=== PATIENT | female | born 1955 | race Caucasian/White ===

== ENCOUNTER 2018-11-13 13:39 | Emergency (ER) | payer MEDICARE, MEDICAID, SELFPAY ==
[2018-11-13 13:40] VITALS: BP 131/82; PULSE 94; RESP 15; TEMP 36.1; O2SAT 97; BMI 26.5
--- NOTE | 2018-11-13 17:30 | PC.NURSE ---
pt c/o right armpit abscess. states seen at [facility], they did a culture, pt recieved a phone call from them telling her the infection is MRSA, pt states they sent antibiotic to [facility], and did not pick them up prior to traveling. pt states her primary md told her to come to ED for possible lancing.
[2018-11-13 18:05] VITALS: BP 125/66; PULSE 90; RESP 18; O2SAT 95
--- NOTE | 2018-11-13 20:09 | ED_ITS ---
HPI - Skin/Abscess/Foreign Bdy <Anya Mcnulty PA-C - Last Filed: 11/13/18 22:21> General Chief complaint: Skin/Abscess/Foreign Body Stated complaint: MRSA Time Seen by Provider: 11/13/18 19:49 Source: patient Mode of arrival: ambulatory Limitations: no limitations History of Present Illness HPI narrative: This 63-year-old female comes to ED due to axillary abscess. She states that she has had this for a couple of weeks, started out as a small bump which she thought was an ingrown hair. She saw her PCP on Saturday who measured this and states it had grown to 9 cm. A surgical consult was requested however patient was not able to get back for that. This was draining a little bit and patient states culture was done. She states her primary care office called her and told her culture showed MRSA and that she might need I&D. She states that she was not put on antibiotic and has been out of town for a few days here. She sought this had grown in the interim, however states that she has been using a hot pack on this and actually has expressed quite a bit of whitish drainage, however she is concerned now as there are little small red bumps with pustules around this site. She denies any spreading redness, fever, or other new symptoms today. Related Data Previous Rx's Medication Instructions Recorded doxycycline monohydrate 100 mg PO BID 7 Days #14 cap 11/13/18 Allergies Allergy/AdvReac Type Severity Reaction Status Date / Time codeine Allergy Verified 11/13/18 13:48 Penicillins Allergy Verified 11/13/18 13:48 Sulfa (Sulfonamide Allergy Verified 11/13/18 13:48 Antibiotics) Review of Systems <Anya Mcnulty PA-C - Last Filed: 11/13/18 22:21> Review of Systems ROS Unobtainable: All systems reviewed & are unremarkable except as noted in HPI and below PFSH <Anya Mcnulty PA-C - Last Filed: 11/13/18 22:21> Medical History History of anxiety disorder (Chronic) History of melanoma (Chronic) History of solitary pulmonary nodule (Chronic) Surgical History Status post rotator cuff repair (Resolved) Family History Other No pertinent family history Social History Smoking Status: Current every day smoker Family History Other No pertinent family history Social History Smoking Status: Current every day smoker Exam <Anya Mcnulty PA-C - Last Filed: 11/13/18 22:21> Narrative Exam Narrative: GENERAL APPEARANCE: Patient sitting comfortably, in no distress. LUNGS: Clear to auscultation bilaterally. HEART: Rate and rhythm regular without murmur, normal S1 and S2, no S3 or S4. DERMATOLOGIC: Right axilla there is a tender, indurated 3-4 cm nodule with a 3 mm open pore and a drop of white material at the opening. I am not able to express any drainage and this is not fluctuant on palpation. Minimal localized erythema at the borders, not warm to touch. There are several other small erythematous papules and pustules in the axillary hair follicles, none elsewhere Initial Vital Signs Initial Vital Signs: Vital Signs Temperature 97 F L 11/13/18 13:40 Pulse Rate 94 H 11/13/18 13:40 Respiratory Rate 15 11/13/18 13:40 Blood Pressure 131/82 11/13/18 13:40 Pulse Oximetry 97 11/13/18 13:40 <Amirah Hollis DO - Last Filed: 11/14/18 02:48> Initial Vital Signs Initial Vital Signs: Vital Signs Temperature 97 F L 11/13/18 13:40 Pulse Rate 94 H 11/13/18 13:40 Respiratory Rate 15 11/13/18 13:40 Blood Pressure 131/82 11/13/18 13:40 Pulse Oximetry 97 11/13/18 13:40 Course <Anya Mcnulty PA-C - Last Filed: 11/13/18 22:21> Additional Information: Advised patient the larger lesion appears more indurated and fluctuant and does not appear to need incision and drainage night. She has other small pustules in the axilla as well. She describes hot packing this and getting significant drainage from the wound. It is significantly smaller now than she describes on exam a few days ago. She will start antibiotic and follow up with her PCP in a few days. She agreed to return here if any acutely worsening symptoms while in town. She was given a note for [facility] that this should not affect her ability to stay there. Orders Ordered: Discontinued Medications Doxycycline Hyclate (Vibramycin) 100 mg PO NOW ONE Stop: 11/13/18 20:11 Last Admin: 11/13/18 20:58 Dose: 100 mg Vital Signs - 8 hr 11/13/18 21:09 Temperature 97.2 F L Pulse Rate 78 Respiratory Rate 17 Blood Pressure 134/76 Pulse Oximetry 99 <Amirah Hollis DO - Last Filed: 11/14/18 02:48> Orders Ordered: Discontinued Medications Doxycycline Hyclate (Vibramycin) 100 mg PO NOW ONE Stop: 11/13/18 20:11 Last Admin: 11/13/18 20:58 Dose: 100 mg Vital Signs - 8 hr 11/13/18 21:09 Temperature 97.2 F L Pulse Rate 78 Respiratory Rate 17 Blood Pressure 134/76 Pulse Oximetry 99 Discharge Plan Departure Patient Disposition: Home Clinical Impression: Abscess of skin or subcutaneous tissue Qualifiers: Site of cutaneous abscess: extremity Site of cutaneous abscess of extremity: axilla Laterality: right Qualified Code(s): L02.411 - Cutaneous abscess of right axilla Cellulitis Qualifiers: Site of cellulitis: extremity Site of cellulitis of extremity: axilla Laterality: right Qualified Code(s): L03.111 - Cellulitis of right axilla Discharge Date/Time: 11/13/18 21:18 Interventions: ED Discharge Assessment Last Done: 11/13/18 21:09 Instructions: DI for Skin Abscess Activity Restrictions/Additional Instructions: You should return as we talked about if you have acutely worsening symptoms, i.e. high fever, spreading redness into your arm, increased swelling or pain. Otherwise, please start the antibiotic. It is likely to take few days to start working and you should see your PCP 1st of the week for follow-up. Please continue your hot packs to the area as you have been as this is likely to help it drain. It does not appear to need surgical drainage this evening, as it seems like you have been able to drain quite a bit of pus from it since you were last seen. We have given you the 1st dose of antibiotic tonight, and I have sent in a prescription to [facility] for you which you should filler picker 1st thing in the morning when they open and continue every 12 hr. Prescriptions: New doxycycline monohydrate 100 mg capsule 100 mg PO BID 7 Days Qty: 14 RF: 0 Referrals: Digna Younger [Other] Stand Alone Forms: Work Release Note <Amirah Hollis, - Last Filed: 11/14/18 02:48> Cosign ED Attending Cosignature Attestation: I was immediately available in the de partment for consultation. Documentation has been reviewed. I agree with assessment and plan.
[2018-11-13] MEDS: DOXYCYCLINE HYCLATE 100 MG TABLET PO (20:58)
[2018-11-13 21:09] VITALS: BP 134/76; PULSE 78; RESP 17; TEMP 36.2; O2SAT 99
== END 2018-11-13 21:18 | disposition home or self-care (01) ==
PROVIDERS: Emergency Provider Internal Medicine
DX: L02.411 Cutaneous abscess of right axilla (principal); L03.111 Cellulitis of right axilla
CPT/HCPCS: 99282; 99283

== ENCOUNTER 2021-06-10 14:20 | Emergency (ER) | payer MEDICARE, MEDICAID, SELFPAY ==
[2021-06-10] VITALS (7 sets, daily range): BP systolic 146–154; BP diastolic 75–86; PULSE 65–83; RESP 15–26; TEMP 36.7; O2SAT 94–97; BMI 26.9
--- NOTE | 2021-06-10 15:07 | DI.CT.S_ITS ---
PROCEDURE: CT ABDOMEN W CON INDICATIONS: RUQ pain c/w hx pancreatitis TECHNIQUE: After the administration of intravenous contrast, axial sections acquired from the diaphragm to the iliac crests. Coronal and sagittal reformats were performed. For radiation dose reduction, the following was used: automated exposure control, adjustment of mA and/or kV according to patient size. COMPARISON: None. FINDINGS: Image quality: Excellent. Lung bases: Unremarkable. Heart: No significant findings. Liver: Enhancing foci at the inferior right lobe of the liver, (2/22, 32). There are several well-circumscribed hypodense foci in the liver which have the appearance of benign cysts. Gallbladder: Surgically absent. Biliary ducts: Unremarkable. Pancreas: Scattered calcifications in the head of the pancreas. This is typical of chronic calcific pancreatitis. 1 of the calcifications at the head of the pancreas may be intraductal measuring 0.7 cm, (2/26). No upstream pancreatic ductal dilatation is seen. No loculated fluid collection. Spleen: Unremarkable. Adrenal Glands: Small left density nodule in the left adrenal gland measuring 0.9 cm, (2/16). Kidneys and Ureters: No hydronephrosis. Small cysts in the left kidney. Stomach and Bowel: Stomach is not distended. Hypodense region within the wall or submucosa of the proximal duodenum measuring 1.6 cm, (4/20). Peritoneum: No abnormal intraperitoneal fluid. No free air. Ventral Wall: Tiny umbilical hernia. Right upper abdominal wall fat containing hernia, (2/27). Abdominal Nodes: No retroperitoneal or mesenteric adenopathy by size criteria. Vessels: Aorta and inferior vena cava are normal in size. Moderate calcified atherosclerotic plaque. Bones: Unremarkable. IMPRESSION: 1. Findings of chronic calcific pancreatitis. No peripancreatic fluid collection. 2. Small hypodense region in the proximal duodenum may represent a submucosal fluid collection, ulcer, or mass. -Recommend comparison with more remote CTs if available. Consider further evaluation with endoscopy. 3. Small enhancing foci in the liver. These are indeterminate but could represent a benign finding such as hemangioma. These could be further characterized with multiphase liver CT or MRI with IV contrast. 4. Left adrenal gland low-density subcentimeter nodule. -Recommend adrenal protocol MRI or washout CT for further characterization. 5. Post cholecystectomy. Dictated by: Eusebio Adler M.D. on 06/10/2021 at 14:49 Approved by: Eusebio Adler M.D. on 06/10/2021 at 15:01
[2021-06-10 15:09] LABS: Add Manual Diff / Slide Review NO; Basophils Absolute Auto 100 /uL (0-100); Basophils Percent Auto 0.9 % (0-2); Eosinophils Absolute Auto 200 /uL (0-450); Hemoglobin 13.6 g/dL (12.0-16.0); Lymphocytes Absolute Auto 2000 /uL (1100-4500); Lymphocytes Percent Auto 18.1 % (25-40); Mean Corpuscular HGB Conc 32.5 % (30-36); Mean Corpuscular Hemoglobin 29.6 PG (26-34); Mean Corpuscular Volume 91.2 fL (80-100); Monocytes Absolute Auto 700 /uL (0-900); Monocytes Percent Auto 5.9 % (3-14); Neutrophils Absolute Auto 8200 /uL (1500-7000); Neutrophils Percent Auto 73.1 % (50-75); Platelet Count 190 X10^3/uL (150-400); Red Cell Distribution Width 13.8 % (11.6-14.8); White Blood Cell Count 11.2 X10^3/uL (4.5-11.0)
[2021-06-10 15:10] LABS: Alanine Aminotransferase 16 IU/L (<35); Albumin 4.3 g/dL (3.5-5.0); Albumin Globulin Ratio 1.4 (1.0-2.8); Alkaline Phosphatase 101 U/L (38-126); Aspartate Aminotransferase 24 IU/L (14-36); BUN Creatinine Ratio 29.8 (6-22); Bilirubin Total 0.4 mg/dL (0.2-1.3); Blood Urea Nitrogen 17 mg/dL (7-17); Calcium 9.2 mg/dL (8.4-10.2); Carbon Dioxide 26 mmol/L (22-32); Chloride 106 mmol/L (98-107); Estimated Glomerular Filt Rate > 60.0 mL/min (>60); Globulin 3.1 g/dL (1.7-4.1); Glucose 103 mg/dL (80-110); HEMOLYSIS < 15 (0-50); Lipase 67 U/L (23-300); Potassium 4.4 mmol/L (3.4-5.1); Sodium 137 mmol/L (137-145); Total Protein 7.4 g/dL (6.3-8.2)
[2021-06-10 15:11] LABS: INR 0.9 (0.9-1.3); Prothrombin Time 10.2 SECONDS (10.1-12.7)
--- NOTE | 2021-06-10 15:11 | ED_ITS ---
HPI - Abdominal Pain <IRENE Venegas - Last Filed: 06/10/21 17:39> General Chief Complaint: Abdominal Pain Stated Complaint: Sharp pains in stomach Time Seen by Provider: 06/10/21 14:56 History of Present Illness HPI narrative: 65-year-old female presents to the ED for 1 day with upper quadrant abdominal pain that comes and goes. She reports that she had pancreatitis last year when she was drinking hard liquor every day, she reports that she has been drinking last and typically only has 1 tall can of beer a day, and she reports she does not drink every day. She denies having a fever, no vomiting, and she had a normal bowel movement this morning, she does endorse nausea, denies any changes to her urination or dysuria. She reports that the pain woke her up at 2:00 a.m. when she was staying in [place] last night. She reports that she had dinner with 1 beer prior to bed. She denies any melena, chest pain, shortness of breath, or changes to her routine. Related Data Previous Rx's Medication Instructions Recorded oxycodone 5 mg tablet 5 mg PO BID PRN #10 tab 06/10/21 Allergies Allergy/AdvReac Type Severity Reaction Status Date / Time codeine Allergy Verified 11/13/18 13:48 Penicillins Allergy Verified 11/13/18 13:48 Sulfa (Sulfonamide Allergy Verified 11/13/18 13:48 Antibiotics) Review of Systems <IRENE Venegas - Last Filed: 06/10/21 17:39> Review of Systems Narrative: General: denies fever, chills Head/Neck: denies headache, neck pain Eyes: denies visual changes, eye pain Cardio: denies chest pain, palpitations Respiratory: denies shortness of breath, cough GI: Intermittent Upper abdominal pain, denies vomiting, or diarrhea : denies dysuria, hematuria MSK: denies joint pain, muscle weakness Skin: denies rash, itching Neuro: denies numbness, tingling Patient History <IRENE Venegas - Last Filed: 06/10/21 17:39> Medical History History of anxiety disorder History of melanoma History of solitary pulmonary nodule Surgical History Status post rotator cuff repair Family History Other No pertinent family history Social History Smoking Status: Current every day smoker Smoking Status: Current every day smoker alcohol intake frequency: holidays/special occasions only Substance Use Type: does not use Exam <IRENE Venegas - Last Filed: 06/10/21 17:39> Narrative Exam Narrative: Independently reviewed vitals signs and nursing notes. General: Awake, alert, nontoxic, no cardiorespiratory distress Head/Neck: Atraumatic, neck full range of motion Eyes: EOMI, conjunctiva normal Nose: nares patent, no rhinorrhea Mouth/Throat: moist mucus membranes, posterior pharynx normal, no oral lesions Cardio: Regular rate and rhythm, no peripheral edema Respiratory: respirations unlabored without wheezing, stridor, or rales. No retractions. GI: Abdomen soft, no masses, no rigidity, nontender to palpation, complains of jayashree umbilical pain when spasms, none right now. MSK: Moves all extremities, neurovascularly intact Skin: Normal capillary refill, no rash, well-perfused Neuro: Normal speech and cognition, normal gait Initial Vital Signs Initial Vital Signs: Vital Signs Pulse Rate 79 06/10/21 14:31 Pulse Oximetry 97 06/10/21 14:31 <Dominick Stinson DO - Last Filed: 06/10/21 17:45> Initial Vital Signs Initial Vital Signs: Vital Signs Pulse Rate 79 06/10/21 14:31 Pulse Oximetry 97 06/10/21 14:31 Course <IRENE Venegas - Last Filed: 06/10/21 17:39> Orders Ordered: ED Orders 06/10/21 14:37 EKG-12 Lead Stat 06/10/21 14:40 Complete Blood Count AUTO DIFF Stat Comprehensive Metabolic Panel Stat Lipase Stat Partial Thromboplastin Time Stat Prothrombin Time INR Stat Urine Microscopic Stat 06/10/21 15:07 CT abdomen w con Stat Discontinued Medications Ketorolac Tromethamine (Ketorolac 30 Mg/Ml Vial) 30 mg IV NOW ONE Stop: 06/10/21 15:08 Last Admin: 06/10/21 15:21 Dose: 30 mg Documented by: REBECCA Ondansetron HCl (Ondansetron 4 Mg/2 Ml Inj) 4 mg IV NOW ONE Stop: 06/10/21 14:37 Last Admin: 06/10/21 15:21 Dose: Not Given Documented by: REBECCA Oxycodone/Acetaminophen (Oxycodone/Acetaminophen 5/325 Tablet) 1 tab PO NOW ONE Stop: 06/10/21 16:36 Last Admin: 06/10/21 16:50 Dose: 1 tab Documented by: REBECCA Vital Signs Vital signs: Vital Signs - 8 hr 06/10/21 14:31 06/10/21 14:33 06/10/21 14:34 Temperature 98.1 F Pulse Rate 79 80 82 Respiratory Rate 22 19 Blood Pressure 154/84 H 147/86 H Pulse Oximetry 97 97 97 06/10/21 15:00 06/10/21 15:30 06/10/21 16:00 Temperature Pulse Rate 73 65 68 Respiratory Rate 26 H 15 16 Blood Pressure Pulse Oximetry 96 95 94 06/10/21 16:30 Temperature Pulse Rate 70 Respiratory Rate 23 Blood Pressure 146/75 H Pulse Oximetry 96 <Dominick Stinson, - Last Filed: 06/10/21 17:45> Orders Ordered: ED Orders 06/10/21 14:37 EKG-12 Lead Stat 06/10/21 14:40 Complete Blood Count AUTO DIFF Stat Comprehensive Metabolic Panel Stat Lipase Stat Partial Thromboplastin Time Stat Prothrombin Time INR Stat Urine Microscopic Stat 06/10/21 15:07 CT abdomen w con Stat Discontinued Medications Ketorolac Tromethamine (Ketorolac 30 Mg/Ml Vial) 30 mg IV NOW ONE Stop: 06/10/21 15:08 Last Admin: 06/10/21 15:21 Dose: 30 mg Documented by: REBECCA Ondansetron HCl (Ondansetron 4 Mg/2 Ml Inj) 4 mg IV NOW ONE Stop: 06/10/21 14:37 Last Admin: 06/10/21 15:21 Dose: Not Given Documented by: REBECCA Oxycodone/Acetaminophen (Oxycodone/Acetaminophen 5/325 Tablet) 1 tab PO NOW ONE Stop: 06/10/21 16:36 Last Admin: 06/10/21 16:50 Dose: 1 tab Documented by: CTRCANDACE Vital Signs Vital signs: Vital Signs - 8 hr 06/10/21 14:31 06/10/21 14:33 06/10/21 14:34 Temperature 98.1 F Pulse Rate 79 80 82 Respiratory Rate 22 19 Blood Pressure 154/84 H 147/86 H Pulse Oximetry 97 97 97 06/10/21 15:00 06/10/21 15:30 06/10/21 16:00 Temperature Pulse Rate 73 65 68 Respiratory Rate 26 H 15 16 Blood Pressure Pulse Oximetry 96 95 94 06/10/21 16:30 Temperature Pulse Rate 70 Respiratory Rate 23 Blood Pressure 146/75 H Pulse Oximetry 96 MDM - Abdominal Pain <IRENE Venegas - Last Filed: 06/10/21 17:39> Lab Data Result diagrams: 06/10/21 14:40 06/10/21 14:40 Labs: Lab Results 06/10/21 06/10/21 06/10/21 Range/Units 14:40 14:40 14:40 WBC 11.2 H (4.5-11.0) X10^3/uL RBC 4.60 (4.0-5.2) X10^6/uL Hgb 13.6 (12.0-16.0) g/dL Hct 42.0 (36-46) % MCV 91.2 (80-100) fL MCH 29.6 (26-34) PG MCHC 32.5 (30-36) % RDW 13.8 (11.6-14.8) % Plt Count 190 (150-400) X10^3/uL Neut % (Auto) 73.1 (50-75) % Lymph % (Auto) 18.1 L (25-40) % Trego % (Auto) 5.9 (3-14) % Eos % (Auto) 2.0 (2-4) % Baso % (Auto) 0.9 (0-2) % Neut # (Auto) 8200 H (6150-3820) /uL Lymph # (Auto) 2000 (5477-9944) /uL Treg[place] # (Auto) 700 (0-900) /uL Eos # (Auto) 200 (0-450) /uL Baso # (Auto) 100 (0-100) /uL PT 10.2 (10.1-12.7) SECONDS INR 0.9 (0.9-1.3) APTT 37 H (26.4-36.2) SECONDS Sodium 137 (137-145) mmol/L Potassium 4.4 (3.4-5.1) mmol/L Chloride 106 (98-107) mmol/L Carbon Dioxide 26 (22-32) mmol/L BUN 17 (7-17) mg/dL Creatinine 0.57 (0.52-1.04) mg/dL Estimated GFR > 60.0 (>60) mL/min BUN/Creatinine Ratio 29.8 H (6-22) Glucose 103 (80-110) mg/dL Calcium 9.2 (8.4-10.2) mg/dL Total Bilirubin 0.4 (0.2-1.3) mg/dL AST 24 (14-36) IU/L ALT 16 (<35) IU/L Alkaline Phosphatase 101 (38-126) U/L Total Protein 7.4 (6.3-8.2) g/dL Albumin 4.3 (3.5-5.0) g/dL Globulin 3.1 (1.7-4.1) g/dL Albumin/Globulin Ratio 1.4 (1.0-2.8) Lipase 67 (23-300) U/L Urine RBC (0-5/HPF) Urine WBC (0-5/HPF) Ur Squamous Epith Cells (0-5/HPF) Urine Bacteria (None) Ur Culture Indicated? 06/10/21 Range/Units 14:40 WBC (4.5-11.0) X10^3/uL RBC (4.0-5.2) X10^6/uL Hgb (12.0-16.0) g/dL Hct (36-46) % MCV (80-100) fL MCH (26-34) PG MCHC (30-36) % RDW (11.6-14.8) % Plt Count (150-400) X10^3/uL Neut % (Auto) (50-75) % Lymph % (Auto) (25-40) % Trego % (Auto) (3-14) % Eos % (Auto) (2-4) % Baso % (Auto) (0-2) % Neut # (Auto) (5000-6733) /uL Lymph # (Auto) (7146-1126) /uL Trego # (Auto) (0-900) /uL Eos # (Auto) (0-450) /uL Baso # (Auto) (0-100) /uL PT (10.1-12.7) SECONDS INR (0.9-1.3) APTT (26.4-36.2) SECONDS Sodium (137-145) mmol/L Potassium (3.4-5.1) mmol/L Chloride (98-107) mmol/L Carbon Dioxide (22-32) mmol/L BUN (7-17) mg/dL Creatinine (0.52-1.04) mg/dL Estimated GFR (>60) mL/min BUN/Creatinine Ratio (6-22) Glucose (80-110) mg/dL Calcium (8.4-10.2) mg/dL Total Bilirubin (0.2-1.3) mg/dL AST (14-36) IU/L ALT (<35) IU/L Alkaline Phosphatase (38-126) U/L Total Protein (6.3-8.2) g/dL Albumin (3.5-5.0) g/dL Globulin (1.7-4.1) g/dL Albumin/Globulin Ratio (1.0-2.8) Lipase (23-300) U/L Urine RBC None seen (0-5/HPF) Urine WBC 5-10/hpf H (0-5/HPF) Ur Squamous Epith Cells 5-10 /hpf H (0-5/HPF) Urine Bacteria None seen (None) Ur Culture Indicated? Cult not indicated Point of care testing: Urine Dip Bedside Urine Glucose Negative Bedside Urine Bilirubin - Negative Bedside Urine Ketone - Negative Urine Specific Blanchard 1.015 Bedside Urine Occult Blood ++ Bedside Urine pH 6.0 Bedside Urine Protein - Negative Bedside Urine Urobilinogen - Negative Bedside Urine Nitrite - Negative Bedside Urine Leukocytes - Negative Esterase Imaging Data CT scan - abdomen/pelvis: Radiologist's Impression: PROCEDURE:? CT ABDOMEN W CON ? INDICATIONS:? RUQ pain c/w hx pancreatitis ? TECHNIQUE:? After the administration of intravenous contrast, axial sections acquired from the diaphragm to the iliac crests.? Coronal and sagittal reformats were performed.? For radiation dose reduction, the following was used:? automated exposure control, adjustment of mA and/or kV according to patient size.? ? COMPARISON:? None. ? FINDINGS:? Image quality:? Excellent.? ? Lung bases:? Unremarkable.? ? Heart:? No significant findings. ? Liver:? Enhancing foci at the inferior right lobe of the liver, (11/21, 32).? There are several well-circumscribed hypodense foci in the liver which have the appearance of benign cysts.? ? Gallbladder:? Surgically absent. Biliary ducts:? Unremarkable.? ? Pancreas:? Scattered calcifications in the head of the pancreas.? This is typi kati of chronic calcific pancreatitis.? 1 of the calcifications at the head of the pancreas may be intraductal measuring 0.7 cm, (11/25).? No upstream pancreatic ductal dilatation is seen.? No loculated fluid collection.? Spleen:? Unremarkable.? ? Adrenal Glands:? Small left density nodule in the left adrenal gland measuring 0.9 cm, (11/15). Kidneys and Ureters:? No hydronephrosis.? Small cysts in the left kidney.? ? ? Stomach and Bowel:? Stomach is not distended.? Hypodense region within the wall or submucosa of the proximal duodenum measuring 1.6 cm, (01/17). Peritoneum:? No abnormal intraperitoneal fluid.? No free air.? ? Ventral Wall: ? Tiny umbilical hernia.? Right upper abdominal wall fat containing hernia, (11/26). Abdominal Nodes:? No retroperitoneal or mesenteric adenopathy by size criteria.? Vessels:? Aorta and inferior vena cava are normal in size.? Moderate calcified atherosclerotic plaque.? ? Bones:? Unremarkable.? IMPRESSION:? 1. Findings of chronic calcific pancreatitis.? No peripancreatic fluid collection.? ? 2. Small hypodense region in the proximal duodenum may represent a submucosal fluid collection, ulcer, or mass.? -Recommend comparison with more remote CTs if available.? Consider further evaluation with endoscopy. ? 3. Small enhancing foci in the liver.? These are indeterminate but could represent a benign finding such as hemangioma.? These could be further characterized with multiphase liver CT or MRI with IV contrast.? ? 4. Left adrenal gland low-density subcentimeter nodule.? -Recommend adrenal protocol MRI or washout CT for further characterization. ? 5. Post cholecystectomy.? ? Dictated by: Eusebio Adler M.D. on 06/10/2021 at 14:49 ? ? Approved by: Eusebio Adler M.D. on 06/10/2021 at 15:01 ? [facility] Narrative Medical decision making narrative: 65-year-old female presents to the ED for 1 day of abdominal pain which feels like her last pancreatitis episode. Patient does drink alcohol, she reports not every day but most days. Abdomen showed chronic calcific pancreatitis, 12 lead showed normal sinus rhythm, lab work showed a WBC of 11.2, lipase of 67, UA was unremarkable, no other pertinent findings on her lab work. Patient is nontoxic in appearance, afebrile, pain improved after 1 dose of Toradol and 1 Percocet. Instructions on pancreatitis diet were given, as well as instructions to follow up with her PCP in 1 week. Patient understands that she will follow-up in 1 week at [facility], her labs and CT results were given to her to bring there. Initial ddx to include but not limited to alcoholic pancreatitis, less likely differential diagnosis include: acute hepatitis, peptic ulcer disease, cholangitis, colitis. Patient is appropriate and amenable to discharge home. Vital signs are stable on repeat examination is unremarkable. Patient has been informed of results. Patient has been given strict return to ER precautions for any new or worsening symptoms. Patient understands to follow up closely with outpatient providers as instructed. Patient understands plan and agrees to discharge home. All questions and concerns answered at this time. <Dominick Stinson, DO - Last Filed: 06/10/21 17:45> Lab Data Labs: Lab Results 06/10/21 06/10/21 06/10/21 Range/Units 14:40 14:40 14:40 WBC 11.2 H (4.5-11.0) X10^3/uL RBC 4.60 (4.0-5.2) X10^6/uL Hgb 13.6 (12.0-16.0) g/dL Hct 42.0 (36-46) % MCV 91.2 (80-100) fL MCH 29.6 (26-34) PG MCHC 32.5 (30-36) % RDW 13.8 (11.6-14.8) % Plt Count 190 (150-400) X10^3/uL Neut % (Auto) 73.1 (50-75) % Lymph % (Auto) 18.1 L (25-40) % Trego % (Auto) 5.9 (3-14) % Eos % (Auto) 2.0 (2-4) % Baso % (Auto) 0.9 (0-2) % Neut # (Auto) 8200 H (2120-8193) /uL Lymph # (Auto) 2000 (8921-6138) /uL Trego # (Auto) 700 (0-900) /uL Eos # (Auto) 200 (0-450) /uL Baso # (Auto) 100 (0-100) /uL PT 10.2 (10.1-12.7) SECONDS INR 0.9 (0.9-1.3) APTT 37 H (26.4-36.2) SECONDS Sodium 137 (137-145) mmol/L Potassium 4.4 (3.4-5.1) mmol/L Chloride 106 (98-107) mmol/L Carbon Dioxide 26 (22-32) mmol/L BUN 17 (7-17) mg/dL Creatinine 0.57 (0.52-1.04) mg/dL Estimated GFR > 60.0 (>60) mL/min BUN/Creatinine Ratio 29.8 H (6-22) Glucose 103 (80-110) mg/dL Calcium 9.2 (8.4-10.2) mg/dL Total Bilirubin 0.4 (0.2-1.3) mg/dL AST 24 (14-36) IU/L ALT 16 (<35) IU/L Alkaline Phosphatase 101 (38-126) U/L Total Protein 7.4 (6.3-8.2) g/dL Albumin 4.3 (3.5-5.0) g/dL Globulin 3.1 (1.7-4.1) g/dL Albumin/Globulin Ratio 1.4 (1.0-2.8) Lipase 67 (23-300) U/L Urine RBC (0-5/HPF) Urine WBC (0-5/HPF) Ur Squamous Epith Cells (0-5/HPF) Urine Bacteria (None) Ur Culture Indicated? 06/10/21 Range/Units 14:40 WBC (4.5-11.0) X10^3/uL RBC (4.0-5.2) X10^6/uL Hgb (12.0-16.0) g/dL Hct (36-46) % MCV (80-100) fL MCH (26-34) PG MCHC (30-36) % RDW (11.6-14.8) % Plt Count (150-400) X10^3/uL Neut % (Auto) (50-75) % Lymph % (Auto) (25-40) % Trego % (Auto) (3-14) % Eos % (Auto) (2-4) % Baso % (Auto) (0-2) % Neut # (Auto) (6647-7175) /uL Lymph # (Auto) (3383-9825) /uL Trego # (Auto) (0-900) /uL Eos # (Auto) (0-450) /uL Baso # (Auto) (0-100) /uL PT (10.1-12.7) SECONDS INR (0.9-1.3) APTT (26.4-36.2) SECONDS Sodium (137-145) mmol/L Potassium (3.4-5.1) mmol/L Chloride (98-107) mmol/L Carbon Dioxide (22-32) mmol/L BUN (7-17) mg/dL Creatinine (0.52-1.04) mg/dL Estimated GFR (>60) mL/min BUN/Creatinine Ratio (6-22) Glucose (80-110) mg/dL Calcium (8.4-10.2) mg/dL Total Bilirubin (0.2-1.3) mg/dL AST (14-36) IU/L ALT (<35) IU/L Alkaline Phosphatase (38-126) U/L Total Protein (6.3-8.2) g/dL Albumin (3.5-5.0) g/dL Globulin (1.7-4.1) g/dL Albumin/Globulin Ratio (1.0-2.8) Lipase (23-300) U/L Urine RBC None seen (0-5/HPF) Urine WBC 5-10/hpf H (0-5/HPF) Ur Squamous Epith Cells 5-10 /hpf H (0-5/HPF) Urine Bacteria None seen (None) Ur Culture Indicated? Cult not indicated Point of care testing: Urine Dip Bedside Urine Glucose Negative Bedside Urine Bilirubin - Negative Bedside Urine Ketone - Negative Urine Specific Blanchard 1.015 Bedside Urine Occult Blood ++ Bedside Urine pH 6.0 Bedside Urine Protein - Negative Bedside Urine Urobilinogen - Negative Bedside Urine Nitrite - Negative Bedside Urine Leukocytes - Negative Esterase Discharge Plan Departure Patient Disposition: Home Clinical Impression: Chronic calcific pancreatitis Instructions: Chronic Pancreatitis Activity Restrictions/Additional Instructions: *You have been diagnosed with chronic calcific pancreatitis. The best food choices for those suffering from chronic pancreatitis are?fruits, vegetables, whole grains, legumes, and nonfat/low fat dairy, and lean cuts of meat. Healthy fats such as avocado, olive oil, fatty fish, nuts, and seeds, may be consumed with careful portion control. What not to eat if you have pancreatitis Foods to limit include: * red meat * organ meats * fried foods * fries and potato chips * mayonnaise * margarine and butter * full-fat dairy * pastries and desserts with added sugars * beverages with added sugars If you?re trying to combat pancreatitis, avoid trans-fatty acids in your diet. Fried or heavily processed foods, like [place] fries and fast-food hamburgers, are some of the worst offenders. Organ meats, full-fat dairy, potato chips, and mayonnaise also top the list of foods to limit. Cooked or deep-fried foods might trigger a flare-up of pancreatitis. You?ll also want to cut back on the refined flour found in cakes, pastries, and cookies. These foods can tax the digestive system by causing your insulin levels to spike. If you?re recovering from acute or chronic pancreatitis, avoid drinking alcohol. If you smoke, you?ll also need to quit. Focus on eating a low-fat diet that won?t tax or inflame your pancreas. You should also stay hydrated. Keep an electrolyte beverage or a bottle of water with you at all times. If you?ve been hospitalized due to a pancreatitis flare-up, your doctor will pro bably refer you to a dietitian to help you learn how to change your eating habits permanently. People with chronic pancreatitis often experience malnutrition due to their decreased pancreas function. Vitamins A, D, E, and K are most commonly found to be lacking as a result of pancreatitis. *What to do: *Please continue to take your regular medications as directed. [ x] New medication prescriptions sent to your pharmacy: [[facility] ] [ ] New medication written as a paper prescription [ ] No new medications given *Please follow up with your primary care provider in 2-3 days, call for an appointment. Let them know you were seen in the Emergency Department and that we ask that you be seen in follow up. We will electronically transmit a record of today's note if your PCP is in our system *If you do not have a primary care provider please contact the [facility] Resource line at [phone]. They will ask some questions about your medical history and help get you set up with a doctor in the community. *Return to Emergency Department if you should have any new, worsening or concerning symptoms, such as [fever greater than 101F, chills, worsening pain, persistent vomiting or other bothersome symptoms] Prescriptions: New oxycodone 5 mg tablet 5 mg PO BID PRN (Reason: pain) Qty: 10 RF: 0 <Dominick Stinson, DO - Last Filed: 06/10/21 17:45> [facility] Dr Stinson Co-Sign Statement: I was available for consultation during this patient's emergency department visit. This chart is signed by myself for administrative purposes only. I did not have direct contact with this patient during this visit. They were seen independently by the APC.
[2021-06-10 15:14] LABS: PTT Partial Thromboplastin Tim 37 SECONDS (26.4-36.2)
[2021-06-10] MEDS: KETOROLAC 30 MG/ML VIAL IV (15:21)
[2021-06-10 16:02] LABS: Bacteria Urine None Seen; RBC Urine None Seen (0-5/HPF)
[2021-06-10 16:11] LABS: Culture Indicated Urine Cult Not Indicated; Squamous Epithelial Cell Urine 5-10 /HPF (0-5/HPF); WBC Urine 5-10/HPF (0-5/HPF)
[2021-06-10] MEDS: OXYCODONE/ACETAMINOPHEN 5/325 TABLET 1 TAB PO (16:50)
== END 2021-06-10 17:04 | disposition home or self-care (01) ==
PROVIDERS: Emergency Medicine; Emergency Provider Nurse Practitioner Critical Care Medicine
DX: K86.1 Other chronic pancreatitis (principal); R10.10 Upper abdominal pain, unspecified
CPT/HCPCS: 36415; 74160; 80053; 81003; 81015; 83690; 85025; 85610; 85730; 93005; 96374; 99284; J1885

== ENCOUNTER 2021-12-21 14:42 | Emergency (ER) | payer MEDICARE, MEDICAID, SELFPAY ==
[2021-12-21 14:47] VITALS: BP 167/68; PULSE 85; RESP 16; TEMP 36.7; O2SAT 97; BMI 26.5
--- NOTE | 2021-12-21 16:51 | ED.SOB ---
HPI - SOB/Dyspnea General Chief Complaint: Shortness of Breath/Dyspnea Stated Complaint: cough copd Time Seen by Provider: 12/21/21 16:44 Source: patient Mode of arrival: Ambulatory Limitations: no limitations History of Present Illness HPI Narrative: This is a 66-year-old female with known COPD normally on albuterol, as well as a steroid inhaler and nebulizer as needed. Patient denies any other medical issues. She states [place]. She has had fullness in her ears, nasal congestion and increasing shortness of breath particularly with exertion and going up stairs. She has had a worsening cough which has been nonproductive but wet. Patient denies resolution with albuterol. She does have some improvement but finds improvement does not persist. She denies fevers or chills. She has had a burning sensation in her chest but no pressure. She denies nausea or vomiting. No GI or urinary symptoms. No swelling in her extremities. She denies any cardiac history. No hypertension, dyslipidemia or diabetes. She does use tobacco daily, occasional alcohol, no illicit. She has not had issues with flares of her COPD with seasonal changes or allergies but does note very cold weather makes it worse. She also has noticed a lump on her right chest which is nontender over the area of the rib. Patient states she has been told she has a pulmonary nodule on the right side. Related Data Previous Rx's Medication Instructions Recorded oxycodone 5 mg tablet 5 mg PO BID PRN #10 tab 06/10/21 levofloxacin 750 mg tablet 750 mg PO DAILY 5 Days #5 tab 12/21/21 Allergies Allergy/AdvReac Type Severity Reaction Status Date / Time codeine Allergy Verified 11/13/18 13:48 Penicillins Allergy Verified 11/13/18 13:48 Sulfa (Sulfonamide Allergy Verified 11/13/18 13:48 Antibiotics) Review of Systems Review of Systems ROS Unobtainable: All systems reviewed & are unremarkable except as noted in HPI and below Patient History Medical History History of anxiety disorder History of melanoma History of solitary pulmonary nodule Surgical History Status post rotator cuff repair Family History Other No pertinent family history Social History Smoking Status: Current every day smoker Smoking Status: Current every day smoker tobacco type: cigarettes alcohol intake frequency: holidays/special occasions only Substance Use Type: does not use Exam Narrative Exam Narrative: GENERAL: Alert and oriented x three, female in mild distress. HEENT: Head normocephalic, atraumatic, EOMI, pupils reactive, face symmetric, moist mucous membranes NECK: Supple, full range of motion CARDIOVASCULAR: Regular rate and rhythm without murmurs, rubs or gallops. RESPIRATORY: Breath sounds equal bilaterally, by the assistive bilateral expiratory wheeze no rales or rhonchi. No tachypnea accessory muscle use. Patient coarse breath sound bilaterally. Speaks in full sentences. ABDOMEN: Soft, nontender. Normoactive bowel sounds all 4 quadrants. No guarding or rebound, rigidity, no mass : No CVA tenderness EXTREMITIES: Normal range of motion, no clubbing or edema bilateral lower extremities. Neurovascularly intact NEUROLOGICAL: Cranial nerves II through XII grossly intact. Moving all extremities SKIN: Warm, dry, no petechiae, no rashes or lesions. Initial Vital Signs Initial Vital Signs: Vital Signs Temperature 98.1 F 12/21/21 14:47 Pulse Rate 85 12/21/21 14:47 Respiratory Rate 16 12/21/21 14:47 Blood Pressure 167/68 H 12/21/21 14:47 Pulse Oximetry 97 12/21/21 14:47 Course Orders Ordered: ED Orders 12/21/21 17:00 Consult to Respiratory Therapy Evaluate & Treat XR chest 2V Stat EKG-12 Lead Stat 12/21/21 17:38 Basic Metabolic Panel Stat Complete Blood Count AUTO DIFF Stat Lactate (Lactic Acid) Stat Magnesium Stat NT-proBNP (BNP-Adult 18+) Stat Troponin & CK Cardiac Panel Stat Discontinued Medications Levofloxacin (Levofloxacin 250 Mg Tablet) 750 mg PO NOW ONE Stop: 12/21/21 18:30 Last Admin: 12/21/21 18:34 Dose: 750 mg Documented by: SWETA Methylprednisolone (Methylprednisolone 125 Mg/2 Ml Vial) 125 mg IV NOW ONE Stop: 12/21/21 17:01 Last Admin: 12/21/21 18:20 Dose: Not Given Documented by: LEE Prednisone (Prednisone 20 Mg Tablet) 60 mg PO NOW ONE Stop: 12/21/21 17:38 Last Admin: 12/21/21 17:50 Dose: 60 mg Documented by: SWETA Reevaluation(s) Reevaluation #1: Patient and I reviewed her findings from today. She defers any additional steroids. We discussed she does appear to have pneumonia on chest x-ray. She states she has plenty of albuterol. Time: 18:22 Vital Signs Vital signs: Vital Signs - 8 hr 12/21/21 14:47 12/21/21 17:35 12/21/21 18:00 Temperature 98.1 F Pulse Rate 85 71 69 Respiratory Rate 16 18 19 Blood Pressure 167/68 H Pulse Oximetry 97 96 95 12/21/21 18:02 12/21/21 18:30 12/21/21 18:31 Temperature Pulse Rate 70 64 63 Respiratory Rate 18 19 18 Blood Pressure 114/76 139/64 Pulse Oximetry 94 95 94 MDM - SOB/Dyspnea Lab Data Result diagrams: 12/21/21 17:38 12/21/21 17:38 Labs: Lab Results 12/21/21 12/21/21 12/21/21 Range/Units 17:38 17:38 17:38 WBC 8.7 (4.5-11.0) X10^3/uL RBC 4.41 (4.0-5.2) X10^6/uL Hgb 13.1 (12.0-16.0) g/dL Hct 38.7 (36-46) % MCV 87.8 (80-100) fL MCH 29.8 (26-34) PG MCHC 33.9 (30-36) % RDW 14.0 (11.6-14.8) % Plt Count 210 (150-400) X10^3/uL Neut % (Auto) 50.9 (50-75) % Lymph % (Auto) 32.8 (25-40) % [place] % (Auto) 6.1 (3-14) % Eos % (Auto) 9.1 H (2-4) % Baso % (Auto) 1.1 (0-2) % Neut # (Auto) 4500 (7682-6282) /uL Lymph # (Auto) 2900 (3910-6863) /uL [place] # (Auto) 500 (0-900) /uL Eos # (Auto) 800 H (0-450) /uL Baso # (Auto) 100 (0-100) /uL Sodium 141 (137-145) mmol/L Potassium 4.1 (3.4-5.1) mmol/L Chloride 108 H (98-107) mmol/L Carbon Dioxide 27 (22-32) mmol/L BUN 22 H (7-17) mg/dL Creatinine 0.60 (0.52-1.04) mg/dL Estimated GFR > 60.0 (>60) mL/min BUN/Creatinine Ratio 36.7 H (6-22) Glucose 92 (80-110) mg/dL Lactate 0.5 L (0.7-2.1) mmol/L Calcium 9.2 (8.4-10.2) mg/dL Magnesium 2.1 (1.6-2.3) mg/dL Total Creatine Kinase 32 (30-135) U/L CK-MB (CK-2) TNP CK-MB (CK-2) Rel Index TNP Troponin I < 0.012 (0.01-0.034) ng/mL NT-Pro-B Natriuret Pep 118 (<125) pg/mL Imaging Data Chest x-ray: Radiologist's Impression: [place] [address] XRay Report Signed Patient: Melody Nieto MR#: [id number] : 1955 Acct:[id number] Age/Sex: 66 / F Date of Service: 12/21/21 Loc: ED Accession Number: [id number] ?? Procedure: XR chest 2V Ordering Provider: Arin Dubon D.O. PROCEDURE:? XR CHEST 2V ? INDICATIONS:? cough, short of breath, chest pain, bump on rib (left anterior 4/5th rib ? TECHNIQUE:? 2 views of the chest were acquired.? ? COMPARISON:? None. ? FINDINGS:? ? Surgical changes and devices:? Cholecystectomy clips are seen.? ? Lungs and pleura:? Mild poorly defined infiltrate is seen within the right lower lung, which is attributed to the right middle lobe.? No pleural effusions or pneumothorax.? ? Mediastinum:? Mediastinal contours are normal.? Heart size is normal.? ? Bones and chest wall:? No suspicious bony abnormalities.? No focal rib abnormalities can be seen.? Age-appropriate bony degenerative changes are seen.? ? Soft tissues appear unremarkable.? ? ? IMPRESSION:? Likely mild right middle lobe infiltrate. ? ? Dictated by: John Velasquez M.D. on 12/21/2021 at 16:40 ? ? Approved by: John Velasquez M.D. on 12/21/2021 at 16:41?? ECG Data Attestation: I personally reviewed and interpreted this ECG as follows: Prior ECG tracings: available for review Interpretation: Sinus rhythm rate of 66, DC 208 QRS of 96 QTC of 417. B1 B2 inverted T-wave. No elevation noted. Patient has prior from 06/10/2021 which appears similar. MDM Narrative Medical decision making narrative: This is a 66-year-old female comes in with complaint of progressive dyspnea, cough which is nonproductive. Afebrile but feels similar told she had pneumonia. Chest x-ray has findings consistent with pneumonia, labs do not reflect any other obvious causes. 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 She defers additional steroids. She would like to continue with antibiotics. She states she has plenty of albuterol nebulized and inhalers at home. All questions answered. Discharge Plan Departure Patient Disposition: Home Clinical Impression: Pneumonia Instructions: DI for Pneumonia -- Adult Activity Restrictions/Additional Instructions: Follow up with your physician for recheck. You may continue to use your nebulizer and/or inhaler every 4 hours as needed. Your imaging today shows pneumonia take antibiotics until they are completed. Prescription sent to [facility] in [place]. Please return for fevers, worsening chest pain, shortness of breath, lightheadedness or passing out, persistent vomiting, new swelling in her extremities or other new or concerning symptoms. Prescriptions: New levofloxacin 750 mg tablet 750 mg PO DAILY 5 Days Qty: 5 0RF No Action oxycodone 5 mg tablet 5 mg PO BID PRN (Reason: pain) Qty: 10 0RF
--- NOTE | 2021-12-21 17:00 | DI.RAD.S_ITS ---
PROCEDURE: XR CHEST 2V INDICATIONS: cough, short of breath, chest pain, bump on rib (left anterior 4/5th rib TECHNIQUE: 2 views of the chest were acquired. COMPARISON: None. FINDINGS: Surgical changes and devices: Cholecystectomy clips are seen. Lungs and pleura: Mild poorly defined infiltrate is seen within the right lower lung, which is attributed to the right middle lobe. No pleural effusions or pneumothorax. Mediastinum: Mediastinal contours are normal. Heart size is normal. Bones and chest wall: No suspicious bony abnormalities. No focal rib abnormalities can be seen. Age-appropriate bony degenerative changes are seen. Soft tissues appear unremarkable. IMPRESSION: Likely mild right middle lobe infiltrate. Dictated by: John Velasquez M.D. on 12/21/2021 at 16:40 Approved by: John Velasquez M.D. on 12/21/2021 at 16:41
--- NOTE | 2021-12-21 17:26 | PC.NURSE ---
Pt states she lives on the 3rd floor of a motel and she gets SOB after the 9th stair, denies CP, states that she coughs during her sleep cycle. Reports using nebulizer as needed and two inhalers.
[2021-12-21 17:35] VITALS: PULSE 71; RESP 18; O2SAT 96
[2021-12-21 17:50] LABS: Add Manual Diff / Slide Review NO; Basophils Absolute Auto 100 /uL (0-100); Basophils Percent Auto 1.1 % (0-2); Eosinophils Absolute Auto 800 /uL (0-450); Eosinophils Percent Auto 9.1 % (2-4); Hematocrit 38.7 % (36-46); Hemoglobin 13.1 g/dL (12.0-16.0); Lymphocytes Absolute Auto 2900 /uL (1100-4500); Lymphocytes Percent Auto 32.8 % (25-40); Mean Corpuscular HGB Conc 33.9 % (30-36); Mean Corpuscular Hemoglobin 29.8 PG (26-34); Mean Corpuscular Volume 87.8 fL (80-100); Monocytes Absolute Auto 500 /uL (0-900); Monocytes Percent Auto 6.1 % (3-14); Neutrophils Absolute Auto 4500 /uL (1500-7000); Neutrophils Percent Auto 50.9 % (50-75); Platelet Count 210 X10^3/uL (150-400); Red Blood Cell Count 4.41 X10^6/uL (4.0-5.2); White Blood Cell Count 8.7 X10^3/uL (4.5-11.0)
[2021-12-21] MEDS: predniSONE 20 MG TABLET 60 MG PO (17:50)
[2021-12-21 18:00] VITALS: PULSE 69; RESP 19; O2SAT 95
[2021-12-21 18:02] VITALS: BP 114/76; PULSE 70; RESP 18; O2SAT 94
[2021-12-21 18:03] LABS: BUN Creatinine Ratio 36.7 (6-22); Blood Urea Nitrogen 22 mg/dL (7-17); Calcium 9.2 mg/dL (8.4-10.2); Carbon Dioxide 27 mmol/L (22-32); Chloride 108 mmol/L (98-107); Creatine Kinase 32 U/L (30-135); Estimated Glomerular Filt Rate > 60.0 mL/min (>60); Glucose 92 mg/dL (80-110); HEMOLYSIS < 15 (0-50); Lactate (Lactic Acid) 0.5 mmol/L (0.7-2.1); Magnesium 2.1 mg/dL (1.6-2.3); Potassium 4.1 mmol/L (3.4-5.1); Sodium 141 mmol/L (137-145)
[2021-12-21 18:15] LABS: NT-proBNP (BNP-Adult 18+) 118 pg/mL (<125); Troponin I < 0.012 ng/mL (0.01-0.034)
--- NOTE | 2021-12-21 18:22 | PC.NURSE ---
Pulse Ox reading of 87 @ 1735 is incorrect, tried to fix in [employer]. Should read 96% RA - charge account authorizer aware.
[2021-12-21 18:30] VITALS: PULSE 64; RESP 19; O2SAT 95
[2021-12-21 18:31] VITALS: BP 139/64; PULSE 63; RESP 18; O2SAT 94
[2021-12-21] MEDS: levoFLOXacin 250 MG TABLET 750 MG PO (18:34)
== END 2021-12-21 18:49 | disposition home or self-care (01) ==
PROVIDERS: Emergency Provider Emergency Medicine
DX: J18.9 Pneumonia, unspecified organism (principal); R03.0 Elevated blood-pressure reading, without diagnosis of hypertension; F17.210 Nicotine dependence, cigarettes, uncomplicated
CPT/HCPCS: 36415; 71046; 80048; 82550; 83605; 83735; 83880; 84484; 85025; 93005; 99283; 99284

== ENCOUNTER 2022-05-30 11:41 | Emergency (ER) | payer MEDICARE, MEDICAID, SELFPAY ==
[2022-05-30 11:46] VITALS: BP 164/81; PULSE 84; RESP 20; TEMP 36.9; O2SAT 98; BMI 26.5
[2022-05-30 12:17] LABS: Add Manual Diff / Slide Review NO; Basophils Absolute Auto 100 /uL (0-100); Basophils Percent Auto 0.8 % (0-2); Eosinophils Absolute Auto 400 /uL (0-450); Eosinophils Percent Auto 5.7 % (2-4); Hematocrit 37.3 % (36-46); Hemoglobin 12.4 g/dL (12.0-16.0); Lymphocytes Absolute Auto 1900 /uL (1100-4500); Lymphocytes Percent Auto 27.7 % (25-40); Mean Corpuscular HGB Conc 33.3 % (30-36); Mean Corpuscular Hemoglobin 29.7 PG (26-34); Monocytes Absolute Auto 500 /uL (0-900); Monocytes Percent Auto 7.5 % (3-14); Neutrophils Absolute Auto 3900 /uL (1500-7000); Neutrophils Percent Auto 58.3 % (50-75); Platelet Count 189 X10^3/uL (150-400); Red Blood Cell Count 4.19 X10^6/uL (4.0-5.2); Red Cell Distribution Width 14.2 % (11.6-14.8); White Blood Cell Count 6.8 X10^3/uL (4.5-11.0)
[2022-05-30 12:24] LABS: RBC Urine 10-30/HPF (0-5/HPF); Squamous Epithelial Cell Urine 10-30 /HPF (0-5/HPF)
[2022-05-30 12:25] LABS: Bacteria Urine Moderate (10-30); WBC Urine 1-5/HPF (0-5/HPF)
[2022-05-30 12:26] LABS: Culture Indicated Urine Cult Not Indicated
[2022-05-30 12:29] LABS: Alanine Aminotransferase 12 IU/L (<35); Albumin Globulin Ratio 1.3 (1.0-2.8); Alkaline Phosphatase 97 U/L (38-126); Aspartate Aminotransferase 18 IU/L (14-36); BUN Creatinine Ratio 21.3 (6-22); Bilirubin Total 0.5 mg/dL (0.2-1.3); Blood Urea Nitrogen 16 mg/dL (7-17); Calcium 8.7 mg/dL (8.4-10.2); Carbon Dioxide 29 mmol/L (22-32); Chloride 105 mmol/L (98-107); Estimated Glomerular Filt Rate > 60 mL/min (>60); Globulin 3.1 g/dL (1.7-4.1); Glucose 121 mg/dL (80-110); HEMOLYSIS < 15 (0-50); Lipase 42 U/L (23-300); Potassium 4.3 mmol/L (3.4-5.1); Sodium 138 mmol/L (137-145); Total Protein 7.1 g/dL (6.3-8.2)
[2022-05-30 12:39] LABS: COVID19 -Nasal RAPID Negative (Negative)
[2022-05-30 14:13] VITALS: O2SAT 98
--- NOTE | 2022-05-30 14:19 | DI.CT.S_ITS ---
PROCEDURE: CT ABDOMEN PELVIS WO CON INDICATIONS: ruq protusion TECHNIQUE: Noncontrast 5 mm thick sections acquired from the diaphragms to the symphysis. 5 mm coronal and sagittal reformats were then performed. For radiation dose reduction, the following was used: automated exposure control, adjustment of mA and/or kV according to patient size. COMPARISON: None. FINDINGS: Image quality: Excellent. ABDOMEN: Lung bases: Lung bases are clear. Heart size is normal. Solid organs: Liver is normal in size. Gallbladder is surgically absent. Pancreas is normal in contours. Spleen is normal in size. No adrenal nodules. Kidneys are normal in size, without hydronephrosis or nephrolithiasis. 2.5 cm cyst is seen in midpole of left kidney. Peritoneum and bowel: Unenhanced bowel loops demonstrate normal wall thickness and caliber. No free fluid or air. Extensive sigmoid diverticulosis is seen without sigmoid colon wall thickening or mesenteric fat stranding. Mild fecal stasis is seen in the colon. Appendix is not visualized. No bowel wall thickening or mesenteric fat stranding is seen in right lower quadrant abdomen. Nodes and vessels: No retroperitoneal or mesenteric adenopathy by size criteria. Aorta and inferior vena cava are normal in caliber. Moderate atherosclerotic calcifications are seen in abdominal aorta. Miscellaneous: Right upper abdominal wall defect is seen measures up to 2.2 cm in width with herniation sac containing fat only. PELVIS: Genitourinary: Bladder wall thickness is normal. Miscellaneous: No inguinal hernias or adenopathy. Bones: No suspicious bony lesions. No vertebral body compression fractures. IMPRESSION: 1. Right ventral hernia containing fat only. No abdominal wall mass or fluid collection is seen. 2. No acute inflammatory process is seen in abdomen or pelvis. No bowel obstruction or abnormal bowel wall thickening. Sigmoid diverticulosis without evidence of acute diverticulitis. No free fluid or free air. Dictated by: Juan Carlos Nguyen M.D. on 05/30/2022 at 15:10 Approved by: Juan Carlos Nguyen M.D. on 05/30/2022 at 15:14
--- NOTE | 2022-05-30 14:19 | ED_ITS ---
HPI - Abdominal Pain General Chief Complaint: Abdominal Pain Stated Complaint: swelling in abdomen Time Seen by Provider: 05/30/22 14:06 Source: patient Mode of arrival: Ambulatory History of Present Illness HPI narrative: Patient is a 66-year-old female who presents with right upper quadrant swelling. She says been there for about a week. She happened to notice it while she was standing up at my ring herself in the mirror in the hotel room. She denies any pain nausea or vomiting. However now that she knows it is there she notices it is a little uncomfortable. She has a previous cholecystectomy multiple years ago. She has been having some shortness of breath ongoing for the past couple of weeks. She has a history of COPD she is managed by pulmonology. She denies fever chills or chest pain. No changes in bowel habits. Related Data Previous Rx's Medication Instructions Recorded oxycodone 5 mg tablet 5 mg PO BID PRN pain #10 tabs 06/10/21 Allergies Allergy/AdvReac Type Severity Reaction Status Date / Time codeine Allergy Verified 05/30/22 11:49 Penicillins Allergy Verified 05/30/22 11:49 Sulfa (Sulfonamide Allergy Verified 05/30/22 11:49 Antibiotics) Review of Systems Review of Systems Narrative: GENERAL: Denies chills, fatigue, malaise, fever, sweats, travel HEENT: Denies sinus pain, ear pain, sore throat, difficulty swallowing, neck pain RESPIRATORY: Denies dyspnea, cough, wheezing, hemoptysis, sputum. CARDIOVASCULAR: Denies chest pain, palpitations, orthopnea, edema GASTROINTESTINAL: See HPI : Denies dysuria, frequency, incontinence, hematuria, urinary retention, flank pain. MUSCULOSKELETAL: Denies weakness, joint pain, or bony pain SKIN: No rash, no erythema, no pruritus NEUROLOGIC: Denies weakness, dizziness, headache, numbness, change in speech, confusion PSYCHIATRIC: No concerning psychosocial issues. 12 point review of systems is negative except for those stated above and HPI Patient History Medical History History of anxiety disorder History of melanoma History of solitary pulmonary nodule Surgical History Status post rotator cuff repair Family History Other No pertinent family history Social History Smoking Status: Current every day smoker Smoking Status: Current every day smoker tobacco type: cigarettes alcohol intake frequency: a few times a week Alcohol type: beer Substance Use Type: does not use Exam Initial Vital Signs Initial Vital Signs: Vital Signs Temperature 98.4 F 05/30/22 11:46 Pulse Rate 84 05/30/22 11:46 Respiratory Rate 20 05/30/22 11:46 Blood Pressure 164/81 H 05/30/22 11:46 Pulse Oximetry 98 05/30/22 11:46 Oxygen Delivery Method 05/30/22 11:46 GENERAL: Alert pleasant 66-year-old female and in no acute distress. HEENT: Head atraumatic,EOMI, pupils reactive, face symmetric, moist mucous membranes CARDIOVASCULAR: Regular rate and rhythm without murmurs, rubs or gallops. RESPIRATORY: Breath sounds equal bilaterally, no wheezes rales or rhonchi. ABDOMEN: Soft, obvious right upper quadrant hernia noted upon standing but resolves when sitting and lying down. She has some minimal pain upon palpation. : No CVA tenderness EXTREMITIES: Normal range of motion, no clubbing or edema. Neurovascularly intact NEUROLOGICAL: Alert and oriented x4.Normal gait and speech. SKIN: Warm, dry, no laceration, no petechiae, no rashes or lesions. Course Orders Ordered: ED Orders 05/30/22 11:49 EKG-12 Lead Stat 05/30/22 11:50 Complete Blood Count AUTO DIFF Stat Comprehensive Metabolic Panel Stat Lipase Stat 05/30/22 12:00 COVID19 -Nasal RAPID/Pre-Proc Stat 05/30/22 12:05 Urine Microscopic Stat 05/30/22 14:19 CT abdomen pelvis wo con Stat Vital Signs Vital signs: Vital Signs - 8 hr 05/30/22 11:46 05/30/22 14:13 05/30/22 14:29 Temperature 98.4 F Pulse Rate 84 Respiratory Rate 20 Blood Pressure 164/81 H 136/65 Pulse Oximetry 98 98 Oxygen Delivery Method Room Air 05/30/22 14:29 05/30/22 14:30 05/30/22 14:30 Temperature Pulse Rate 60 60 Respiratory Rate Blood Pressure 140/73 Pulse Oximetry 97 97 Oxygen Delivery Method 05/30/22 15:00 05/30/22 15:30 Temperature Pulse Rate 64 62 Respiratory Rate Blood Pressure Pulse Oximetry 97 96 Oxygen Delivery Method MDM - Abdominal Pain Lab Data Result diagrams: 05/30/22 11:50 05/30/22 11:50 Labs: Lab Results 05/30/22 05/30/22 05/30/22 Range/Units 11:50 11:50 12:00 WBC 6.8 (4.5-11.0) X10^3/uL RBC 4.19 (4.0-5.2) X10^6/uL Hgb 12.4 (12.0-16.0) g/dL Hct 37.3 (36-46) % MCV 89.0 (80-100) fL MCH 29.7 (26-34) PG MCHC 33.3 (30-36) % RDW 14.2 (11.6-14.8) % Plt Count 189 (150-400) X10^3/uL Neut % (Auto) 58.3 (50-75) % Lymph % (Auto) 27.7 (25-40) % [place] % (Auto) 7.5 (3-14) % Eos % (Auto) 5.7 H (2-4) % Baso % (Auto) 0.8 (0-2) % Neut # (Auto) 3900 (5495-1553) /uL Lymph # (Auto) 1900 (8756-7225) /uL [place] # (Auto) 500 (0-900) /uL Eos # (Auto) 400 (0-450) /uL Baso # (Auto) 100 (0-100) /uL Sodium 138 (137-145) mmol/L Potassium 4.3 (3.4-5.1) mmol/L Chloride 105 (98-107) mmol/L Carbon Dioxide 29 (22-32) mmol/L BUN 16 (7-17) mg/dL Creatinine 0.75 (0.52-1.04) mg/dL Estimated GFR > 60 (>60) mL/min BUN/Creatinine Ratio 21.3 (6-22) Glucose 121 H (80-110) mg/dL Calcium 8.7 (8.4-10.2) mg/dL Total Bilirubin 0.5 (0.2-1.3) mg/dL AST 18 (14-36) IU/L ALT 12 (<35) IU/L Alkaline Phosphatase 97 (38-126) U/L Total Protein 7.1 (6.3-8.2) g/dL Albumin 4.0 (3.5-5.0) g/dL Globulin 3.1 (1.7-4.1) g/dL Albumin/Globulin Ratio 1.3 (1.0-2.8) Lipase 42 (23-300) U/L Urine RBC (0-5/HPF) Urine WBC (0-5/HPF) Ur Squamous Epith Cells (0-5/HPF) Urine Bacteria (None) Ur Culture Indicated? SARS-CoV-2 (PCR) Negative (Negative) 05/30/22 Range/Units 12:05 WBC (4.5-11.0) X10^3/uL RBC (4.0-5.2) X10^6/uL Hgb (12.0-16.0) g/dL Hct (36-46) % MCV (80-100) fL MCH (26-34) PG MCHC (30-36) % RDW (11.6-14.8) % Plt Count (150-400) X10^3/uL Neut % (Auto) (50-75) % Lymph % (Auto) (25-40) % [place] % (Auto) (3-14) % Eos % (Auto) (2-4) % Baso % (Auto) (0-2) % Neut # (Auto) (9129-7219) /uL Lymph # (Auto) (9648-9481) /uL [place] # (Auto) (0-900) /uL Eos # (Auto) (0-450) /uL Baso # (Auto) (0-100) /uL Sodium (137-145) mmol/L Potassium (3.4-5.1) mmol/L Chloride (98-107) mmol/L Carbon Dioxide (22-32) mmol/L BUN (7-17) mg/dL Creatinine (0.52-1.04) mg/dL Estimated GFR (>60) mL/min BUN/Creatinine Ratio (6-22) Glucose (80-110) mg/dL Calcium (8.4-10.2) mg/dL Total Bilirubin (0.2-1.3) mg/dL AST (14-36) IU/L ALT (<35) IU/L Alkaline Phosphatase (38-126) U/L Total Protein (6.3-8.2) g/dL Albumin (3.5-5.0) g/dL Globulin (1.7-4.1) g/dL Albumin/Globulin Ratio (1.0-2.8) Lipase (23-300) U/L Urine RBC 10-30/hpf H (0-5/HPF) Urine WBC 1-5/hpf (0-5/HPF) Ur Squamous Epith Cells 10-30 /hpf H (0-5/HPF) Urine Bacteria Moderate (10-30) H (None) Ur Culture Indicated? Cult not indicated SARS-CoV-2 (PCR) (Negative) Point of care testing: Urine Dip Bedside Urine Glucose Negative Bedside Urine Bilirubin - Negative Bedside Urine Ketone - Negative Urine Specific [place] 1.025 Bedside Urine Occult Blood +++ Bedside Urine pH 6 Bedside Urine Protein - Negative Bedside Urine Urobilinogen - Negative Bedside Urine Nitrite - Negative Bedside Urine Leukocytes + [address] scan - abdomen/pelvis: Radiologist's Impression: Melody Nieto MR#: [id number] : 1955 Acct:[id number] Age/Sex: 66 / F Date of Service: 05/30/22 Loc: ED Accession Number: [id number] ?? Procedure: CT abdomen pelvis wo con Ordering Provider: Amirah Hollis D.O. PROCEDURE:? CT ABDOMEN PELVIS WO CON ? INDICATIONS:? ruq protusion ? TECHNIQUE:? Noncontrast 5 mm thick sections acquired from the diaphragms to the symphysis.? 5 mm coronal and sagittal reformats were then performed.? For radiation dose re duction, the following was used:? automated exposure control, adjustment of mA and/or kV according to patient size.? ? COMPARISON:? None. ? FINDINGS:? Image quality:? Excellent.? ? ABDOMEN:? Lung bases:? Lung bases are clear.? Heart size is normal.? ? Solid organs:? Liver is normal in size.? Gallbladder is surgically absent.? Pancreas is normal in contours.? Spleen is normal in size.? No adrenal nodules.? Kidneys are normal in size, without hydronephrosis or nephrolithiasis.? 2.5 cm cyst is seen in midpole of left kidney. ? Peritoneum and bowel:? Unenhanced bowel loops demonstrate normal wall thickness and caliber.? No free fluid or air.? Extensive sigmoid diverticulosis is seen without sigmoid colon wall thickening or mesenteric fat stranding.? Mild fecal stasis is seen in the colon.? Appendix is not visualized.? No bowel wall thickening or mesenteric fat stranding is seen in right lower quadrant abdomen. ? Nodes and vessels:? No retroperitoneal or mesenteric adenopathy by size criter ia.? Aorta and inferior vena cava are normal in caliber.? Moderate atherosclerotic calcifications are seen in abdominal aorta. ? Miscellaneous:? Right upper abdominal wall defect is seen measures up to 2.2 cm in width with herniation sac containing fat only. ? ? PELVIS:? Genitourinary:? Bladder wall thickness is normal.? ? Miscellaneous:? No inguinal hernias or adenopathy.? ? Bones:? No suspicious bony lesions.? No vertebral body compression fractures.? ? IMPRESSION:? 1. Right ventral hernia containing fat only.? No abdominal wall mass or fluid collection is seen. 2. No acute inflammatory process is seen in abdomen or pelvis.? No bowel obstruction or abnormal bowel wall thickening.? Sigmoid diverticulosis without evidence of acute diverticulitis.? No free fluid or free air. ? ? Dictated by: Juan Carlos Nguyen M.D. on 05/30/2022 at 15:10 ? ? [facility] Narrative Medical decision making narrative: The patient has a reducible right upper quadrant ventral hernia. It is not causing any problems at this time. Recommend outpatient follow-up. She is in the middle of transferring her care to [place] but does have established care over in [place]. She has no persistent vomiting no changes in bowel habits hernia is not incarcerated Discharge Plan Departure Patient Disposition: Home Clinical Impression: Ventral hernia Instructions: DI for Ventral Hernia Activity Restrictions/Additional Instructions: *You have been diagnosed with ventral hernia *What to do: You will need to have surgery in order to permanently correct this. It is not emergent at this time. *Continue to take medications as directed *Follow up with your primary care provider in 2-3 days or call [phone] Follow-up with general surgery, he will need to call your PCP in order to get a referral *Return to ER if you should have persistent vomiting increasing pain bulge does not go down upon laying or any new, worsening or concerning symptoms Prescriptions: No Action oxycodone 5 mg tablet 5 mg PO BID PRN (Reason: pain) Qty: 10 0RF Referrals: [facility] [Provider Group] Visit Report Forms: Patient Portal/API
[2022-05-30 14:29] VITALS: BP 136/65; PULSE 60; O2SAT 97
[2022-05-30 14:30] VITALS: BP 140/73; PULSE 60; O2SAT 97
[2022-05-30 15:00] VITALS: PULSE 64; O2SAT 97
[2022-05-30 15:30] VITALS: PULSE 62; O2SAT 96
== END 2022-05-30 15:50 | disposition home or self-care (01) ==
PROVIDERS: Emergency Provider Emergency Medicine
DX: K43.9 Ventral hernia without obstruction or gangrene (principal); Z20.822 Contact with and (suspected) exposure to COVID-19
CPT/HCPCS: 36415; 74176; 80053; 81003; 81015; 83690; 85025; 87635; 99283; C9803

== ENCOUNTER → 2022-06-28 13:35 | Outpatient (CLI) | payer MEDICARE, MEDICAID, SELFPAY ==
[2022-06-28 15:26] LABS: Alanine Aminotransferase 22 IU/L (<35); Albumin Globulin Ratio 1.4 (1.0-2.8); Alkaline Phosphatase 101 U/L (38-126); Aspartate Aminotransferase 29 IU/L (14-36); Bilirubin Total 0.5 mg/dL (0.2-1.3); Blood Urea Nitrogen 18 mg/dL (7-17); Calcium 8.9 mg/dL (8.4-10.2); Carbon Dioxide 27 mmol/L (22-32); Chloride 101 mmol/L (98-107); Estimated Glomerular Filt Rate > 60 mL/min (>60); Globulin 2.9 g/dL (1.7-4.1); Glucose 133 mg/dL (80-110); HEMOLYSIS < 15 (0-50); Potassium 4.2 mmol/L (3.4-5.1); Sodium 137 mmol/L (137-145); Total Protein 6.9 g/dL (6.3-8.2)
== END ==
PROVIDERS: Referring Provider Family Medicine; Visit Provider Family Medicine
DX: Z00.00 Encounter for general adult medical examination without abnormal findings (principal); Z13.1 Encounter for screening for diabetes mellitus; Z12.11 Encounter for screening for malignant neoplasm of colon
CPT/HCPCS: 36415; 80053; 82274

== ENCOUNTER → 2022-07-02 | Outpatient (CLI) | payer MEDICARE, MEDICAID, SELFPAY ==
--- NOTE | 2022-07-02 10:23 | DI.CT.S_ITS ---
PROCEDURE: CT CHEST WO CON INDICATIONS: Asymptomatic menopausal state; Pulmonary nodule TECHNIQUE: Noncontrast 5 mm thick sections acquired from the pulmonary apices to the posterior costophrenic angles. 1 mm lung window, 5 mm thick coronal and sagittal and 7 mm axial MIP reformats were then acquired. For radiation dose reduction, the following was used: automated exposure control, adjustment of mA and/or kV according to patient size. COMPARISON: Outside Facility, RG, CT THORAX W/O CONTRAST, 10/13/2020, 9:57. Outside Facility, RG, CT THORAX W/O CONTRAST, 04/13/2020, 12:28. Outside Facility, RG, CT LUNG BIOPSY, 11/26/2019, 10:12. Outside Facility, RG, CT THORAX W/O CONTRAST, 10/29/2019, 9:09. FINDINGS: Image quality: Excellent. Lungs and pleura: A tubular 1.3 x 0.5 cm nodule in the superior segment right lower lobe is relatively stable size, previously 1.3 x 0.4 cm, remeasured. There are several other solid and ground-glass subpleural and parenchymal nodules bilaterally in the upper lobes, measuring up to 4 mm, most of which appear stable, though less well seen due to changes in technique. There are several scattered areas of airway thickening bilaterally and upper and lower lobes. There are a few branching opacities, particularly one centrally in the left upper lobe, likely chronic airway impaction, present previously. No bronchiectasis. No pleural effusions or pleural calcifications. Mediastinum: Heart size is normal. No pericardial effusion. No mediastinal adenopathy by size criteria. Thoracic aorta and central pulmonary arteries are normal in size. Esophagus is normal in caliber. No hiatal hernia. Bones and chest wall: No suspicious bony lesions. No vertebral body compression fractures. No axillary or supraclavicular adenopathy by size criteria. Thyroid gland is normal . Abdomen: The gallbladder surgically absent. 2.5 cm cyst arising from the upper pole of the left kidney. Visualized upper abdominal solid organs and bowel loops appear otherwise normal in the absence of contrast. IMPRESSION: 1. Tubular right lower lobe lung nodule is stable size and morphology compared to prior studies. This is probably benign given two year stability. Correlate with biopsy results. 2. Several other tiny bilateral upper lobe lung nodules. 3. Scattered airways thickening and branching type area of airway impaction, chronic. This may be related to COPD, reactive airways disease or indolent chronic infection. Dictated by: Mariama Quintana M.D. on 07/16/2022 at 8:43 Approved by: Mariama Quintana M.D. on 07/16/2022 at 9:12
== END ==
PROVIDERS: PCP Family Medicine; Referring Provider Nurse Practitioner; Visit Provider Nurse Practitioner
DX: N28.1 Cyst of kidney, acquired (principal); R91.8 Other nonspecific abnormal finding of lung field; Z13.820 Encounter for screening for osteoporosis; Z78.0 Asymptomatic menopausal state; M85.852 Other specified disorders of bone density and structure, left thigh; F17.219 Nicotine dependence, cigarettes, with unspecified nicotine-induced disorders; Z90.710 Acquired absence of both cervix and uterus; Z90.49 Acquired absence of other specified parts of digestive tract
CPT/HCPCS: 71250; 77080

== ENCOUNTER 2022-09-15 00:20 | Emergency (ER) | payer MEDICARE, MEDICAID, SELFPAY ==
[2022-09-15 00:20] VITALS: BP 114/68; PULSE 84; RESP 20; TEMP 36.9; O2SAT 97; BMI 26.5
--- NOTE | 2022-09-15 00:30 | DI.RAD.S_ITS ---
PROCEDURE: XR CHEST 1V INDICATIONS: cough, congestion, ? influenza A, copd hx, known lung nodule TECHNIQUE: One view of the chest was acquired. COMPARISON: [facility], CR, XR CHEST 2V, 12/21/2021, 17:07. FINDINGS: Surgical changes and devices: None. Lungs and pleura: Lungs are clear. No pleural effusions or pneumothorax. Mediastinum: Mediastinal contours appear normal. Heart size is normal. Bones and chest wall: No suspicious bony lesions. Overlying soft tissues appear unremarkable. IMPRESSION: 1. No acute cardiopulmonary disease. Dictated by: Melvin Mauro M.D. on 09/15/2022 at 0:41 Approved by: Melvin Mauro M.D. on 09/15/2022 at 0:42
--- NOTE | 2022-09-15 00:31 | ED.SOB ---
HPI - SOB/Dyspnea General Chief Complaint: Shortness of Breath/Dyspnea Stated Complaint: Respitory cough- mucous- hernia pain Time Seen by Provider: 09/15/22 00:30 Source: patient, EMS and old records reviewed Mode of arrival: EMS Limitations: no limitations History of Present Illness HPI Narrative: There is a 66-year-old female with known COPD, on albuterol, Flovent as well as a known ventral hernia, and stable pulmonary nodule as of June 2022. Patient states for the past week she is had increasing nasal congestion, cough which has been only mildly productive no blood or dark discoloration, patient denies any fevers. She is had chest pain with cough and states this evening an episode where she felt very tight in her chest like she could not breathe. She used her nebulizer earlier in the day has been using her albuterol regularly. She states her breathing is improved currently. She states she is had abdominal pain particularly underneath the ribs and with cough and states that her ventral hernia has been uncomfortable when she coughs. She states it is going back inside and does not seem to be stuck out. She is had some nausea occasional vomiting but not persistent. She is had some diarrheal stools no black or blood. No urinary symptoms. No new swelling in extremities. Patient states her only medications are her inhalers, states she used to be on Combivent but is no longer covered by insurance. She has a known pulmonary nodule which is unchanged on her last CT in June. Patient has had cholecystectomy, left knee surgery, she is had multiple skin cancers excised. Patient does continues tobacco daily, occasional alcohol, denies illicit or THC. Her primary care physicians are in [place], [place] but she is trying to find housing locally. Related Data Previous Rx's Medication Instructions Recorded prednisone 10 mg tablets in a dose See Rx Instructions .Route 09/15/22 pack .COMPLEX #15 ea Allergies Allergy/AdvReac Type Severity Reaction Status Date / Time codeine Allergy Verified 06/08/22 11:42 Penicillins Allergy Verified 06/08/22 11:42 Sulfa (Sulfonamide Allergy Verified 06/08/22 11:42 Antibiotics) Review of Systems Review of Systems ROS Unobtainable: All systems reviewed & are unremarkable except as noted in HPI and below Patient History Medical History History of anxiety disorder History of melanoma History of solitary pulmonary nodule Surgical History Status post rotator cuff repair Family History Other No pertinent family history Social History Smoking Status: Current every day smoker Smoking Status: Current every day smoker tobacco type: cigarettes alcohol intake frequency: a few times a week Alcohol type: beer Substance Use Type: does not use Exam Narrative Exam Narrative: GENERAL: Alert and oriented x three, female in mild distress. HEENT: Head normocephalic, atraumatic, EOMI, pupils reactive, face symmetric, moist mucous membranes NECK: Supple, full range of motion CARDIOVASCULAR: Regular rate and rhythm without murmurs, rubs or gallops. RESPIRATORY: Breath sounds equal bilaterally, no wheezes rales or rhonchi. Patient is not acutely wheezy on exam, slightly coarse at the bases, no tachypnea accessory muscle use. Patient is speaking in full sentence. She is frequent dry cough that is nonproductive. ABDOMEN: Soft, nontender. Normoactive bowel sounds all 4 quadrants. No guarding or rebound, rigidity, no mass, patient has a reducible right upper quadrant hernia. : No CVA tenderness EXTREMITIES: Normal range of motion, no clubbing or edema. Neurovascularly intact NEUROLOGICAL: Cranial nerves II through XII grossly intact. Moving all extremities SKIN: Warm, dry, no petechiae, no rashes or lesions. Initial Vital Signs Initial Vital Signs: Vital Signs Temperature 98.4 F 09/15/22 00:20 Pulse Rate 84 09/15/22 00:20 Respiratory Rate 20 09/15/22 00:20 Blood Pressure 114/68 09/15/22 00:20 Pulse Oximetry 97 09/15/22 00:20 Oxygen Delivery Method 09/15/22 00:20 Oxygen Flow Rate 2 09/15/22 00:20 Course Orders Ordered: ED Orders 09/15/22 00:30 Chest [XR chest 1V] Stat 09/15/22 00:32 Covid-19 + FLU A/B + RSV - PCR Stat Discontinued Medications Acetaminophen (Acetaminophen 325 Mg Tablet) 975 mg PO NOW ONE Stop: 09/15/22 00:31 Last Admin: 09/15/22 00:47 Dose: 975 mg Documented By: LYNDA Albuterol (Albuterol Hfa Prepack) 1 box MISC SEEINSTR ONE Stop: 09/15/22 01:46 Last Admin: 09/15/22 01:52 Dose: 1 box Documented By: DARLINE Prednisone (Prednisone 20 Mg Tablet) 60 mg PO NOW ONE Stop: 09/15/22 00:31 Last Admin: 09/15/22 00:48 Dose: 60 mg Documented By: LYNDA Vital Signs Vital signs: Vital Signs - 8 hr 09/15/22 00:20 09/15/22 01:57 09/15/22 01:57 Temperature 98.4 F Pulse Rate 84 83 Respiratory Rate 20 Blood Pressure 114/68 117/58 L Pulse Oximetry 97 94 Oxygen Delivery Method Nasal Cannula Oxygen Flow Rate 2 09/15/22 02:00 Temperature Pulse Rate 79 Respiratory Rate Blood Pressure Pulse Oximetry 94 Oxygen Delivery Method Oxygen Flow Rate MDM - SOB/Dyspnea Lab Data Labs: Lab Results 09/15/22 Range/Units 00:32 SARS-CoV-2 (PCR) Negative (Negative) Influenza A (RT-PCR) Flu a positive H (NEGATIVE) Influenza B (RT-PCR) Flu b negative (NEGATIVE) RSV (PCR) Negative (Negative) Imaging Data Chest x-ray: Radiologist's Impression: Melody Nieto??66??F??1955 ? Allergy/Adv: codeine, Penicillins, Sulfa (Sulfonamide Antibiotics) (More??) Close Chest X-Ray (Signed) Melvin Mauro - 09/15/22 DEXA Result 07/02/[address] (Signed) Mariama Quintana - 07/02/22 Bone Densitometry 07/02/22 Abdomen/Pelvis CT (Signed) Juan Carlos Nguyen - 05/30/22 Chest X-Ray (Signed) John Velasquez - 12/21/[address] (Signed) Eusebio Adler - 06/10/21 Launch?[address] [address] XRay Report Signed Patient: Melody Nieto MR#: [id number] : 1955 Acct:[id number] Age/Sex: 66 / F Date of Service: 09/15/22 Loc: ED Accession Number: [id number] ?? Procedure: XR chest 1V Ordering Provider: Arin Dubon D.O. PROCEDURE:? XR CHEST 1V ? INDICATIONS:? cough, congestion, ? influenza A, copd hx, known lung nodule ? TECHNIQUE:? One view of the chest was acquired.? ? COMPARISON:? [facility], CR, XR CHEST 2V, 12/21/2021, 17:07. ? FINDINGS:? ? Surgical changes and devices:? None.? ? Lungs and pleura:? Lungs are clear.? No pleural effusions or pneumothorax.? ? Mediastinum:? Mediastinal contours appear normal.? Heart size is normal.? ? Bones and chest wall:? No suspicious bony lesions.? Overlying soft tissues appear unremarkable.? ? IMPRESSION:? ? 1.? No acute cardiopulmonary disease. ? ? ? Dictated by: Melvin Mauro M.D. on 09/15/2022 at 0:41 ? ? Approved by: Melvin Mauro M.D. on 09/15/2022 at 0:42?? MDM Narrative Medical decision making narrative: This is a 66-year-old female transported via EMS for difficulty breathing. Patient states it seems a little bit better now she was not hypoxic in the field and was never lower than 94% did not receive any other interventions other than 2 L nasal cannula. Patient has been using her home nebs, she has had congestion cough with chest discomfort and pain on the underside her ribs in her abdomen. She defers labs, EKG or cardiac workup although we discussed this is part of the differential. She is open to chest x-ray, she is not significantly wheezy on exam but has known COPD and has been using her inhaler more frequently. Patient tested for influenza/COVID/RSV is having significant symptoms in the community. Suspect patient is likely having COPD exacerbation but will evaluate for pneumonia, viral illness and re-evaluate. On recheck patient does not have any worsening symptoms. She is influenza A positive. She has felt like she is had an exacerbation/FLAIR will continue with prednisone taper. She still has her Flovent she has a prescription waiting for her for additional at the pharmacy. Patient given prepack for albuterol. Discussed risks versus benefits of not doing additional workup. Patient appears safe for discharge at this time Discharge Plan Departure Patient Disposition: Home Clinical Impression: Acute exacerbation of chronic obstructive pulmonary disease Instructions: DI for Chronic Obstructive Pulmonary Disease Activity Restrictions/Additional Instructions: Please follow-up for recheck if your symptoms are persisting beyond the next week. You may take prednisone until completely gone. Continue albuterol as needed, continue Flovent daily. Prescription sent to [facility] in [place]. Please return for worsening shortness of breath, increasing chest pain, passing out, persistent vomiting, new swelling in your extremities or other new or concerning changes. Prescriptions: New prednisone 10 mg tablets,dose pack See Rx Instructions .ROUTE .COMPLEX Qty: 15 0RF Rx Instructions: Please take 5 tablets p.o. x1 day, then 4 tablets p.o. x1 day, then 3 tablets p.o. x1 day, then 2 tablets p.o. x1 day, then 1 tablet p.o. x1 day Referrals: Mirella Yost DO [Primary Care Provider] - Visit Report Forms: Patient Portal/API
[2022-09-15] MEDS: ACETAMINOPHEN 325 MG TABLET 975 MG PO (00:47)
[2022-09-15] MEDS: predniSONE 20 MG TABLET 60 MG PO (00:48)
[2022-09-15 01:27] LABS: Influenza A - CEPHEID Flu A POSITIVE (NEGATIVE); Influenza B - CEPHEID Flu B NEGATIVE (NEGATIVE); Respiratory Syncytial Virus Negative (Negative)
[2022-09-15 01:28] LABS: COVID-19 CEPHEID 4-PLEX PCR Negative (Negative)
[2022-09-15] MEDS: ALBUTEROL HFA PREPACK 1 BOX MISC (01:52)
[2022-09-15 01:57] VITALS: BP 117/58; PULSE 83; O2SAT 94
[2022-09-15 02:00] VITALS: PULSE 79; O2SAT 94
== END 2022-09-15 02:04 | disposition home or self-care (01) ==
PROVIDERS: Emergency Provider Emergency Medicine; PCP Family Medicine
DX: J10.1 Influenza due to other identified influenza virus with other respiratory manifestations (principal); J44.1 Chronic obstructive pulmonary disease with (acute) exacerbation; Z20.822 Contact with and (suspected) exposure to COVID-19
CPT/HCPCS: 0241U; 71045; 99283; 99284